=== PATIENT | female | born 1960 | race Caucasian/White ===

== ENCOUNTER → 2017-04-15 | Outpatient (CLI) | payer OTHER ==
[~2017-04-15] MED LIST: ALPR-475 PO; LEVO125T5 PO; LISI1TAB3 PO; MELO-184 PO; METO25TA35 PO; OMEP-110 PO; ONDA4TAB10 PO; ONDA4TAB7 PO; PANT40TA3 PO; POTA10TA PO; RIZA5TAB2 PO; TRAM50TA2 PO
== END | disposition home or self-care (01) ==
LOC: CFH 10:01
PROVIDERS: ATTEND Internal Medicine
DX: Z12.31 Encounter for screening mammogram for malignant neoplasm of breast (principal)
CPT/HCPCS: G0202

== ENCOUNTER → 2018-09-12 | Outpatient (CLI) | payer OTHER ==
[~2018-09-12] MED LIST changes: -MELO-184 PO; +MELO15TA24 PO
== END | disposition home or self-care (01) ==
LOC: CFH 11:10
PROVIDERS: ATTEND Nurse Practitioner Family
DX: Z12.31 Encounter for screening mammogram for malignant neoplasm of breast (principal)
CPT/HCPCS: 77067

== ENCOUNTER → 2020-02-12 | Outpatient (CLI) | payer OTHER ==
[~2020-02-12] MED LIST changes: -ALPR-475 PO; +ALPR0.5T7 PO; +LISI1TAB23 PO; -LISI1TAB3 PO
== END | disposition home or self-care (01) ==
LOC: CFH 14:04
PROVIDERS: ATTEND Nurse Practitioner Family
DX: Z12.31 Encounter for screening mammogram for malignant neoplasm of breast (principal)
CPT/HCPCS: 77067

== ENCOUNTER → 2020-07-14 | Outpatient (CLI) | payer OTHER ==
[~2020-07-14] MED LIST changes: +VENL150C PO; +VITAMIN B12 PO; +VITAMIN D PO
== END | disposition home or self-care (01) ==
LOC: STAR 14:40
PROVIDERS: ATTEND Internal Medicine
DX: Z01.818 Encounter for other preprocedural examination (principal); Z12.11 Encounter for screening for malignant neoplasm of colon; Z20.828 Contact with and (suspected) exposure to other viral communicable diseases; K21.9 Gastro-esophageal reflux disease without esophagitis
CPT/HCPCS: 36415; 87635

== ENCOUNTER 2020-07-19 10:39 | Day surgery (SDC) | payer OTHER ==
[~2020-07-19] VITALS: Ht 167.6 cm; Wt 156.0 kg
[2020-07-19] MEDS ORDERED: CHLORHEXIDINE 15 ML UDC MM STA (10:51)
[2020-07-19] MEDS ORDERED: CHLORHEXIDINE 15 ML UDC ONE (10:55)
[2020-07-19] MEDS ORDERED: LACTATED RINGERS 1,000 ML IV SCH (11:00)
[2020-07-19 11:01] VITALS: BP 160/88
[2020-07-19] MEDS ORDERED: MIDAZOLAM 1 MG/ML, 2ML ONE (11:14)
[2020-07-19] MEDS ORDERED: FENTANYL PF 100 MCG/2ML ONE (11:14)
[2020-07-19] MEDS ORDERED: PROPOFOL 10 MG/ML, 20ML ONE (11:20)
[2020-07-19] MEDS ORDERED: morphine SULFATE 10 MG/ML, 1ML IVPush PRN (11:30)
[2020-07-19] MEDS ORDERED: OXYcodone 5 MG/5 ML ORAL.SOL UDC PO PRN (11:30)
[2020-07-19] MEDS ORDERED: ONDANSETRON 2MG/ML, 2ML IVPush PRN (11:30)
[2020-07-19] MEDS ORDERED: FENTANYL PF 100 MCG/2ML IV PRN (11:30)
[2020-07-19] MEDS ORDERED: PROMETHAZINE 25 MG/ML, 1ML IVPush PRN (11:30)
[2020-07-19] MEDS ORDERED: LABETALOL 5MG/ML, 20ML IV PRN (11:30)
[2020-07-19] MEDS ORDERED: hydrALAzine 20 MG/ML, 1ML IV PRN (11:30)
[2020-07-19] MEDS ORDERED: ACETAMINOPHEN 325 MG TABLET PO PRN (11:30)
== END 2020-07-19 13:00 | disposition home or self-care (01) ==
LOC: OUT 10:39
PROVIDERS: ATTEND Internal Medicine Geriatric Medicine
DX: Z12.11 Encounter for screening for malignant neoplasm of colon (principal); D12.2 Benign neoplasm of ascending colon; K64.0 First degree hemorrhoids; K21.9 Gastro-esophageal reflux disease without esophagitis; Z79.899 Other long term (current) drug therapy
CPT/HCPCS: 43235; 45380; 88305; J2250; J2704; J3010; J7120